=== PATIENT | male | born 1980 | race Caucasian/White ===

== ENCOUNTER 2017-03-16 17:35 | Emergency (ER) | payer OTHER ==
[~2017-03-16] VITALS: Ht 185.4 cm; Wt 113.4 kg
[2017-03-16 17:57] VITALS: BP 136/90
[2017-03-16] MEDS ORDERED: HYDROCHLOROTH12.5 M1 PO (17:59)
[2017-03-16] MEDS ORDERED: LISINOPRIL5 MG PO (18:00)
[2017-03-16] MEDS ORDERED: TRAMADOL 50 MG50 MG PO (18:31)
== END 2017-03-16 18:55 | disposition home or self-care (01) ==
LOC: ER 17:35
DX: S62.635A Displaced fracture of distal phalanx of left ring finger, initial encounter for closed fracture (principal); I10 Essential (primary) hypertension; W21.01XA Struck by football, initial encounter; Y93.61 Activity, american tackle football; Y92.89 Other specified places as the place of occurrence of the external cause; Y99.8 Other external cause status

== ENCOUNTER 2021-03-06 08:41 | Emergency (ER) | payer BC, OTHER ==
[~2021-03-06] VITALS: Ht 182.9 cm; Wt 111.1 kg
[~2021-03-06 08:41] MED LIST: HYDROCHLOROTH12.5 M1 PO; LISINOPRIL5 MG PO; TRAMADOL 50 MG50 MG PO
[2021-03-06 10:06] VITALS: BP 162/102
== END 2021-03-06 10:08 | disposition home or self-care (01) ==
LOC: ER 08:41
DX: M79.672 Pain in left foot (principal); I10 Essential (primary) hypertension; W01.0XXA Fall on same level from slipping, tripping and stumbling without subsequent striking against object, initial encounter; Y93.89 Activity, other specified; Y92.89 Other specified places as the place of occurrence of the external cause; Y99.8 Other external cause status